=== PATIENT | male | born 1980 | race Caucasian/White ===

== ENCOUNTER 2024-05-02 09:37 | Outpatient (RCR) | payer MEDICAID, SELFPAY | END 2024-05-10 23:59 | disposition home or self-care (01) | LOC: SCTC 09:37 | PROVIDERS: PCP Pediatrics; Referring Provider Pediatrics; Visit Provider Nurse Practitioner Family | DX: D72.829 Elevated white blood cell count, unspecified (principal); F17.210 Nicotine dependence, cigarettes, uncomplicated; E66.9 Obesity, unspecified; Z68.43 Body mass index [BMI] 50.0-59.9, adult; Z71.6 Tobacco abuse counseling | CPT/HCPCS: 99212; G0463 ==